=== PATIENT | male | born 1980 | race Caucasian/White ===

== ENCOUNTER 2019-11-05 08:38 | Emergency (ER) | payer OTHER, SELFPAY ==
--- NOTE | ~2019-11-05 | CT_ITS ---
EXAMINATION: CT chest w con DATE: 11/05/2019 11:11 INDICATION: Chest, epigastric abdominal pain TECHNIQUE: Computed tomography (CT) of the chest was performed with 100 cc Omnipaque 350 intravenous contrast. Automated exposure control and iterative reconstruction technique were employed. Exam dose: 427.27 mGy-cm total exam DLP. COMPARISON: 05/09/2016 2 view chest FINDINGS: Normal heart size. No pericardial or pleural effusion. No hilar or mediastinal mass lesion or lymphadenopathy. No thoracic aortic aneurysm or dissection. No pulmonary infiltrate or consolidati on or pulmonary mass lesion is evident. There is degenerative spurring of the thoracic spine. No suspicious osteolytic or osteoblastic lesion s. IMPRESSION: No significant abnormality Reviewed, dictated and finalized at [facility]. Reviewed, dictated and finalized at [facility]. IMPRESSION: No significant abnormality
--- NOTE | ~2019-11-05 | CT_ITS ---
EXAMINATION: CT abdomen pelvis w con DATE: 11/05/2019 10:12 INDICATION: Abdominal pain TECHNIQUE: Computed tomography (CT) of the abdomen and pelvis was performed with 100 cc Omnipaque 350 intravenous contrast. Automated exposure control and iterative reconstruction technique were employe d. Exam dose: 947.35 mGy-cm total exam DLP. COMPARISON: None. FINDINGS: The lung bases are clear of infiltrate or consolidation. Normal heart size. No pericardial or pleural effusion. The liver, gallbladder, bile ducts, spleen, pancreas and pancreatic duct appear normal. Normal morpho logy of the adrenal glands. No renal mass lesion or urinary tract calculus or hydroureteronephrosis. Normal caliber of the abdominal aorta. No intraperitoneal or retroperitoneal or pelvic mass lesion or adenopathy or ascites. Normal appendix. No bowel obstruction or intraperitoneal free air. The urinary bladder and prostate g land and seminal vesicles are unremarkable. Small fat-containing umbilical hernia. Included skeletal structures are unremarkable, other than mild degenerative spurring of the lower tho racic spine, minimal disc degenerative spurring of the lumbar spine. IMPRESSION: No significant abnormality of the abdomen or pelvis is identified Reviewed, dictated and finalized at [facility]. Reviewed, dictated and finalized at [facility].
[2019-11-05 09:00] VITALS: BP 149/87; PULSE 76; RESP 20; TEMP 37; O2SAT 100
--- NOTE | 2019-11-05 09:10 | ECG_ITS ---
Measurements Intervals [place] Rate: 72 P: 43 [place]: 173 QRS: 28 QRSD: 88 T: 21 QT: 372 QTc: 408 Interpretive Statements SINUS RHYTHM DELAYED PRECORDIAL R/S TRANSITION BORDERLINE ECG Electronically Signed On 11-05-2019 20:11:58 CDT by Selvin Horan D.O.
[2019-11-05 09:23] LABS: Hematocrit 45.5 % (40.0-54.0); Mean Corpuscular HGB Conc 35.2 g/dL (32.0-36.0); Mean Corpuscular Hemoglobin 29.3 pg (27.0-31.0); Mean Corpuscular Volume 83.3 fL (78.0-102.0); Mean Platelet Volume 10.1 fl (8.7-11.0); Platelet Count Result 226 K/mm3 (150-420); Red Blood Count 5.46 M/mm3 (4.70-6.10); Red Cell Distribution Width 12.4 % (11.6-14.4); White Blood Count 8.5 K/mm3 (4.8-10.8)
[2019-11-05 09:40] LABS: Band Neutrophils Percent 0 % (0-6); Basophils Absolute Manual 0.08 K/mm3 (0-0.1); Basophils Percent Manual 1 % (0-1); Eosinophils Absolute Manual 1.27 K/mm3 (0.02-0.5); Eosinophils Percent Manual 15 % (1-6); Lymphocytes Absolute Manual 2.12 K/mm3 (1.1-4.5); Lymphocytes Percent Manual 25 % (18-44); Monocytes Absolute Manual 0.51 K/mm3 (0.1-0.90); Monocytes Percent Manual 6 % (3-9); Neutrophils Percent Manual 53 % (46-73); Total Cells Counted 100
[2019-11-05 09:41] LABS: Platelet Estimate Adequate (Adequate)
[2019-11-05 09:42] LABS: Lactic Acid Reflex 1.3 mmol/L (0.4-2.0)
[2019-11-05 09:49] LABS: Alanine Aminotransferase 38 U/L (16-63); Albumin Level 3.7 g/dL (3.4-5.0); Alkaline Phosphatase 91 U/L (46-116); Anion Gap 12.8 mmol/L (7-16); Aspartate Amino Transferase 20 U/L (15-37); Bilirubin,Total 0.4 mg/dL (0.00-1.00); Blood Urea Nitrogen 15 mg/dL (7-18); Calcium 9.1 mg/dL (8.5-10.1); Carbon Dioxide 27 mmol/L (21-32); Chloride 101 mmol/L (98-108); Estimated Glomerular Filt Rate > 60; Glucose 127 mg/dL (70-99); Lipase 67 U/L (73-393); Osmolality Calculated 286 mOsm/kg (285-295); Potassium 3.8 mmol/L (3.5-5.1); Sodium 137 mmol/L (136-145); Total Protein 7.5 g/dL (6.4-8.2); Troponin I < 0.02 ng/mL (0.00-0.056)
[2019-11-05] MEDS: MORPHINE SULFATE 4 MG/ML INJ IV PUSH (10:13)
[2019-11-05] MEDS: ONDANSETRON INJ 4 MG/2 ML VIAL IV PUSH (10:14)
[2019-11-05] MEDS: SODIUM CHLORIDE 0.9% IV 1,000 ML 999 ML IV CONT (10:14)
[2019-11-05] MEDS: PANTOPRAZOLE SODIUM IV 40 MG VIAL IV PUSH (10:14)
--- NOTE | 2019-11-05 10:19 | ED.ABDPAIN ---
HPI - Abdominal Pain General Chief Complaint: Abdominal Pain Stated Complaint: ABD PAIN History of Present Illness HPI narrative: this is a 31-year-old male presents to the emergency department abdominal pain located epigastric and right upper quadrant started earlier today nausea with no vomiting, there is no contain past medical history is a nonsmoker social drinker with no fever chills no shortness of breath no chest pain or pressure no dysuria no hematuria no flank pain. Rates his pain at about an 8/10 in the epigastric and right upper quadrant. MD elicited complaint: abdominal pain Pertinent past history: none Onset (ago): hour(s) Pain Consistency: constant Location: epigastric and RUQ Severity: severe Pain scale (0-10): 8 Quality: aching Radiation: RUQ and epigastric Exacerbating factors: nothing Relieving factors: rest and other ( Position) Associated symptoms: nausea Related Data Allergies Allergy/AdvReac Type Severity Reaction Status Date / Time amoxicillin [From Amoxil] AdvReac Intermediate Blister Verified 11/05/19 09:36 Review of Systems Review of Systems: All systems reviewed & are unremarkable except as noted in HPI and below PMFSH Past Medical History Medical History Patient denies medical problems Social History Social History Gender identity (if verbalized by the patient): Male Exam Const: General: no acute distress and alert Orientation/consciousness: patient oriented x3 HENMT: Head: normal to inspection Eyes: Conjunctivae: conjunctivae normal Pupils: Equal, round and reactive pupils present Neck: Neck: normal visual inspection, no lymphadenopathy and no meningeal signs Chest: Chest palpation & inspection: normal inspection of the chest Resp: Effort & Inspection: normal respiratory effort Auscultation: clear to auscultation bilaterally Cardio: Rate: regular rate Rhythm: regular rhythm GI: GI Palp: Yes Soft to palpation, Yes Tenderness to palpation present (GI) and Yes Guarding due to palpation present (GI) Percussion: Yes normal to percussion : Male General Exam: Yes normal external exam Testes: Testes normal Back/Spine/Pelvis: Back: no CVA tenderness Skin: General skin exam: normal color Rashes: no rashes Neuro: General: patient oriented x3, moves all extremities, no meningeal signs and no focal motor deficits Extrem: General: normal to inspection and no pedal edema Psych: Mental Status: mental status grossly normal Thought content: Yes Normal thought content present Course Course Emergency Course: Reassessment of patient has abdominal pain patient is much more comfortable with the epigastric and right upper quadrant abdominal pain has eased down to about a 4/10 after he received morphine and 1 mg of Dilaudid and also 4 of Zofran and 10 of Reglan. Patient was informed of his negative CT scan of abdomen and chest and given the fact that he is more comfortable is agreeable to going home with pain medication and a PPI, with follow-up with his primary care physician on Thursday for possible gallbladder ultrasound. Vital Signs Vital signs: Vital Signs Temperature 37.0 C 11/05/19 09:00 Pulse Rate 76 11/05/19 09:00 Respiratory Rate 20 11/05/19 09:00 Blood Pressure 149/87 H 11/05/19 09:00 Pulse Oximetry 100 11/05/19 09:00 Temperature 37.0 C 11/05/19 09:00 Pulse Rate 76 11/05/19 09:00 Respiratory Rate 20 11/05/19 09:00 Blood Pressure 149/87 H 11/05/19 09:00 Pulse Oximetry 100 11/05/19 09:00 MDM - Abdominal Pain Lab Data Attestation: I reviewed the patient's lab results. Result diagrams: 11/05/19 09:20 11/05/19 09:20 Labs: Lab Results 11/05/19 11/05/19 11/05/19 Range/Units 09:20 09:20 09:20 WBC 8.5 (4.8-10.8) K/mm3 RBC 5.46 (4.70-6.10) M/mm3 Hgb 16.0 (14.0-18.0) g/dL Hct 45.
[2019-11-05 10:42] VITALS: BP 140/88; PULSE 70; RESP 18
[2019-11-05] MEDS: HYDROMORPHONE HCL 2 MG/ML VIAL IV PUSH (11:25)
[2019-11-05] MEDS: METOCLOPRAMIDE HCL INJ 10 MG/2 ML VIAL IV PUSH (11:27)
[2019-11-05 12:09] VITALS: BP 130/85; PULSE 62; RESP 16; O2SAT 98
== END 2019-11-05 12:10 | disposition home or self-care (01) ==
PROVIDERS: Emergency Provider Emergency Medicine; PCP Internal Medicine
DX: R10.13 Epigastric pain (principal)
CPT/HCPCS: 36415; 71260; 74177; 80053; 83605; 83690; 84484; 85025; 93005; 96361; 96374; 96375; 99284; A9270; C9113; J1170; J2270; J2405; J2765; J7030; Q9965

== ENCOUNTER 2021-04-10 16:58 | Outpatient (CLI) | payer OTHER, SELFPAY ==
[2021-04-10 17:57] LABS: Influenza A QL RT-PCR Negative (Negative); Influenza B QL RT-PCR Negative (Negative); SARS-CoV-2 RNA PCR Negative (Negative)
== END 2021-04-10 16:59 | disposition home or self-care (01) ==
PROVIDERS: PCP Internal Medicine; Visit Provider Internal Medicine
DX: Z20.822 Contact with and (suspected) exposure to COVID-19 (principal); J06.9 Acute upper respiratory infection, unspecified
CPT/HCPCS: 87502; C9803; U0003; U0005

== ENCOUNTER 2021-05-28 15:28 | Outpatient (CLI) | payer OTHER, SELFPAY ==
[2021-05-28 18:04] LABS: Influenza A QL RT-PCR Negative (Negative); Influenza B QL RT-PCR Negative (Negative); SARS-CoV-2 RNA PCR Positive (Negative)
== END 2021-05-28 15:29 | disposition home or self-care (01) ==
LOC: CHSLAB 15:30
PROVIDERS: PCP Internal Medicine; Visit Provider Internal Medicine
DX: U07.1 COVID-19 (principal)
CPT/HCPCS: 87081; 87502; 87880; C9803; U0003; U0005

== ENCOUNTER 2021-05-29 13:05 | Outpatient (CLI) | payer OTHER, SELFPAY ==
[2021-05-29] MEDS: diphenhydrAMINE HCl CAP 25 MG CAPSULE PO (13:33)
[2021-05-29] MEDS: ACETAMINOPHEN 325 MG TABLET 650 MG PO (13:33)
[2021-05-29] MEDS: FAMOTIDINE 20 MG TABLET PO (13:34)
--- NOTE | 2021-05-29 13:34 | PC.NURSE ---
Pt to room 206 amb. A&Ox3. Infusion plan of care explained. Pt read and signed consent form. Pt has no questions or concerns. Oriented to room. Call berger in reach. Reminded to call with needs.
--- NOTE | 2021-05-29 15:02 | PC.NURSE ---
Pt has no complaints. Discharged to home amb.
== END 2021-05-29 13:06 | disposition home or self-care (01) ==
LOC: CHSTREATRM 13:07
PROVIDERS: PCP Internal Medicine; Visit Provider Internal Medicine
DX: U07.1 COVID-19 (principal)
CPT/HCPCS: A9270; M0245; Q0245